=== PATIENT | female | born 1990 | race American Indian/Alaskan Native ===

== ENCOUNTER 2020-01-19 13:30 | Emergency (ER) | payer SELFPAY ==
[2020-01-19 13:37] VITALS: BP 127/87
--- NOTE | 2020-01-19 13:48 | Event Note ---
ED Screening Note Date of service: 01/19/20 Time: 13:45 ED Screening Note: 29-year-old female who presents to the ED with no prior medical history complaining of worsening diarrhea for the past 4 days. Patient states that symptoms started as a migraine with nausea has had watery loose stools now for the past 4 5 days. Patient also stating that nausea and queasy feeling is still present. She denies abdominal pain, fever, chills, chest pain, shortness of breath, vaginal bleed or urinary symptoms LMP: irregular, This initial assessment/diagnostic orders/clinical plan/treatment(s) is/are subject to change based on patients health status, clinical progression and re- assessment by fellow clinical providers in the ED. Further treatment and workup at subsequent clinical providers discretion. Patient/guardian urged not to elope from the ED as their condition may be serious if not clinically assessed and managed. Initial orders include: cbc,cmp,quant
[2020-01-19 14:08] LABS: Basophils # (Auto) 0.1 K/mm3 (0.0-0.1); Basophils % (Auto) 0.7 % (0.0-1.8); Eosinophils # (Auto) 0.1 K/mm3 (0.0-0.4); Eosinophils % (Auto) 0.7 % (0.0-4.3); Hematocrit 36.1 % (30.3-42.9); Hemoglobin 12.7 gm/dl (10.1-14.3); Lymphocytes # (Auto) 1.9 K/mm3 (1.2-5.4); Lymphocytes % (Auto) 23.8 % (13.4-35.0); Mean Corpuscular HGB Conc 35 % (30-34); Mean Corpuscular Volume 84 fl (79-97); Monocytes # (Auto) 0.5 K/mm3 (0.0-0.8); Monocytes % (Auto) 6.8 % (0.0-7.3); Platelet Count 330 K/mm3 (140-440); Red Blood Count 4.28 M/mm3 (3.65-5.03); Red Cell Distribution Width 14.2 % (13.2-15.2)
[2020-01-19 14:20] LABS: Alanine Aminotransferase 11 units/L (7-56); Albumin 4.6 g/dL (3.9-5); BUN/Creatinine Ratio 13; Blood Urea Nitrogen 12 mg/dL (7-17); Calcium 9.4 mg/dL (8.4-10.2); Hemolysis Index 37
--- NOTE | 2020-01-19 14:39 | Emergency Department Report ---
ED N/V/D HPI - General Chief complaint: Nausea/Vomiting/Diarrhea Stated complaint: MIGRAINES/DIARRHEA Time Seen by Provider: 01/19/20 14:38 Source: patient Mode of arrival: Ambulatory Limitations: No Limitations - History of Present Illness Initial comments: 29-year-old female with no significant past medical history presents to the ER today complaining of nausea, vomiting, diarrhea and abdominal pain. Patient states that her symptoms started about a week ago. Patient states that on average she has been having 4-5 episodes of watery stools per day. She reports no melena or hematochezia or mucus to the diarrhea. She states that over the course of the past week she has vomited 3 times but has been nauseous daily. She states that he has been having intermittent lower abdominal pain. She reports having "hot flashes" but denies any fever or chills. She states that she has not tried anything [id number] for the pain or the diarrhea. She denies any antibiotics use prior to the onset of her symptoms. She denies any bad food intake, recent travel or ill contacts. She denies any new medications. Last menstrual cycle ended January 06. She reports no UTI or vaginal symptoms. MD complaint: nausea, vomiting, diarrhea, abdominal pain -: Gradual, week(s) (1) - Related Data Previous Rx's Medication Instructions Recorded Last Taken Type Diphenoxylate/Atropine [Lomotil] 1 tab PO TID PRN #15 tablet 01/19/20 Unknown Rx Ketorolac [Toradol] 10 mg PO Q6H PRN #20 tablet 01/19/20 Unknown Rx Ondansetron [Zofran Odt] 4 mg PO Q8HR #10 tab.rapdis 01/19/20 Unknown Rx Allergies Allergy/AdvReac Type Severity Reaction Status Date / Time sulfamethoxazole Allergy Unknown Verified 01/19/20 13:37 [From Bactrim] trimethoprim [From Bactrim] Allergy Unknown Verified 01/19/20 13:37 ED Review of Systems ROS: Stated complaint: MIGRAINES/DIARRHEA Other details as noted in HPI Comment: All other systems reviewed and negative Constitutional: denies: chills, fever Gastrointestinal: abdominal pain, nausea, vomiting, diarrhea. denies: constipation, hematemesis, hematochezia Genitourinary: denies: urgency, dysuria, discharge Musculoskeletal: denies: back pain, joint swelling, arthralgia Skin: denies: rash, lesions Neurological: denies: headache, weakness, paresthesias Hematological/Lymphatic: denies: easy bleeding, easy bruising ED Past Medical Hx - Past Medical History Previous Medical History?: Yes Additional medical history: hyperthyroid - Surgical History Past Surgical History?: Yes Additional Surgical History: ovarian cyst, ruptured ovary - Social History Smoking Status: Never Smoker Substance Use Type: None - Medications Home Medications: Home Medications Medication Instructions Recorded Confirmed Last Taken Type Diphenoxylate/Atropine [Lomotil] 1 tab PO TID PRN #15 tablet 01/19/20 Unknown Rx Ketorolac [Toradol] 10 mg PO Q6H PRN #20 tablet 01/19/20 Unknown Rx Ondansetron [Zofran Odt] 4 mg PO Q8HR #10 tab.rapdis 01/19/20 Unknown Rx ED Physical Exam - General Limitations: No Limitations General appearance: alert, in no apparent distress - Head Head exam: Present: atraumatic, normocephalic, normal inspection - Eye Eye exam: Present: normal appearance, PERRL, EOMI Pupils: Present: normal accommodation - ENT ENT exam: Present: mucous membranes moist - Neck Neck exam: Present: normal inspection - Respiratory Respiratory exam: Absent: respiratory distress - Cardiovascular Cardiovascular Exam: Present: regular rate - GI/Abdominal GI/Abdominal exam: Present: soft, tenderness (Diffuse lower abd ttp but more so left lower quadrant, no rebound or rigidity noted. No guarding. ). Absent: distended, guarding, rebound - Neurological Exam Neurological exam: Present: alert, oriented X3 - Psychiatric Psychiatric exam: Present: normal affect, normal mood - Skin Skin exam: Present: intact ED Course Vital Signs 01/19/20 13:33 Temperature 98.1 F Pulse Rate 64 Respiratory 18 Rate Blood Pressure 127/87 O2 Sat by Pulse 98 Oximetry ED Medical Decision Making - Lab Data Result diagrams: 01/19/20 13:53 01/19/20 13:53 - Radiology Data Radiology results: report reviewed - Medical Decision Making [id number] --patient presented to the ER today complaining of nausea, vomiting, diarrhea and abdominal pain for about a week. Patient appears to be feeling better after meds and fluids. She is currently resting comfortably on the bed. Does not appear to be in any kind of pain distress. She is not toxic or ill- appearing and does not appear to be significantly dehydrated. Vital signs reviewed and are stable. No vomiting or diarrhea during stay. Labs reviewed as well as CT scan results reviewed. Labs unremarkable. CT scan shows 3 cm ovarian cyst but otherwise unremarkable. Suspect patient's symptoms likely related to viral gastroenteritis at this time I did inform her about the ovarian cyst and that she will need to follow-up with [facility]. No indication for any admission or emergent consult at this time. Patient is stable for discharge but she understands if anything worsens or changes to return to the ER. Critical care attestation.: If time is entered above; I have spent that time in minutes in the direct care of this critically ill patient, excluding procedure time. ED Disposition Clinical Impression: Viral gastroenteritis, Ovarian cyst Disposition: TO HOME OR SELFCARE Is pt being admited?: No Does the pt Need Aspirin: No Condition: Stable Instructions: Ovarian Cyst (ED) Additional Instructions: Take zofran and lomotil as prescribed. Take toradol as needed for pain. I recommend f/u with OBGYN about the ovarian cyst. I recommend you continue hydrated with lots of fluids (water, gatorade, electrolytes). I recommend close f/u with PCP. If anything changes or worsens return to ED. Prescriptions: Diphenoxylate/Atropine [Lomotil] 1 tab PO TID PRN #15 tablet PRN Reason: Diarrhea Ketorolac [Toradol] 10 mg PO Q6H PRN #20 tablet PRN Reason: Pain Ondansetron [Zofran Odt] 4 mg PO Q8HR #10 tab.yonatandis Referrals: BRAYAN CRUZ MD [Staff Physician] - 3-5 Days GABBY CORNELIUS MD [Staff Physician] - 3-5 Days Time of Disposition: 16:12
[2020-01-19] MEDS ORDERED: KETOROLAC 30 MG/1 ML INJ IV ONE (14:49)
[2020-01-19] MEDS ORDERED: SODIUM CHLORIDE 0.9% 1000 ML 1,000 ML IV ONE (14:49)
[2020-01-19] MEDS ORDERED: ONDANSETRON 4 MG/2 ML INJ IV ONE (14:49)
--- NOTE | 2020-01-19 15:56 | Cat Scan Report ---
CT of the abdomen and pelvis with contrast INDICATION: Left lower quadrant pain COMPARISON: None FINDINGS: Lung bases are clear. Liver, spleen, pancreas, adrenal glands and kidneys all appear normal . No definite gallbladder or biliary tree abnormality. No fluid or adenopathy in the upper abdomen. CT of the pelvis shows a normal appendix. No diverticulosis or diverticulitis. No right adnexal laron s. There may be a 3 cm left ovarian cyst without free fluid. No colitis or enteritis. No significant skeletal lesion. IMPRESSION: Left ovarian cyst without free fluid. No definite acute abnormality. Automated exposure control was utilized to diminish radiation dose. Signer Name: Bello Childs MD Signed: 01/19/2020 3:51 PM Workstation Name: [id number]
== END 2020-01-19 16:28 | disposition home or self-care (01) ==
LOC: ED 13:30
DX: A08.4 Viral intestinal infection, unspecified (principal); N83.209 Unspecified ovarian cyst, unspecified side; G43.909 Migraine, unspecified, not intractable, without status migrainosus; E03.9 Hypothyroidism, unspecified; Z79.899 Other long term (current) drug therapy; Z88.2 Allergy status to sulfonamides; Z88.8 Allergy status to other drugs, medicaments and biological substances; Z98.890 Other specified postprocedural states
CPT/HCPCS: 36415; 74177; 80053; 82150; 83690; 84702; 85025; 96361; 96374; 96375; 99284; J1885; J2405; J7030; Q9967

== ENCOUNTER 2020-12-26 22:50 | Emergency (ER) | payer SELFPAY ==
[2020-12-26 23:09] VITALS: BP 101/61
== END 2020-12-27 00:50 | disposition left against medical advice (07) ==
LOC: ED 22:50
DX: R06.02 Shortness of breath (principal); Z53.21 Procedure and treatment not carried out due to patient leaving prior to being seen by health care provider